=== PATIENT | male | born 1985 | race Caucasian/White ===

== ENCOUNTER 2022-10-17 09:27 | Emergency (ER) | payer BC ==
[2022-10-17] MEDS ORDERED: TORAdol 30 mg Injection IV ONE (09:50)
[2022-10-17] MEDS ORDERED: Hydromorphone 1 mg/ml Injection IV ONE (09:50)
[2022-10-17] MEDS ORDERED: Zofran 4 MG/2 ML VIAL IV ONE (09:50)
[2022-10-17] MEDS ORDERED: Sodium Chloride 0.9% 1000 ML 1,000 ML IV STA (09:50)
[2022-10-17] MEDS ORDERED: Zofran 4 MG/2 ML VIAL ONE (10:02)
[2022-10-17] MEDS ORDERED: TORAdol 30 mg Injection ONE (10:02)
[2022-10-17] MEDS ORDERED: Sodium Chloride 0.9% 1000 ML 1,000 ML ONE (10:03)
[2022-10-17] MEDS ORDERED: Hydromorphone 1 mg/ml Injection ONE (10:03)
[2022-10-17 10:04] LABS: Absolute Neutrophil Ct (ANC) 7.67 x10^3/uL (1.4-6.9); BASOPHIL % 0.3 % (0.0-0.4); Basophil (Absolute #) 0.03 x10^3/uL (0-0.4); Eosinophil % 0.4 % (0.00-5.0); Eosinophil (Absolute #) 0.04 x10^3/uL (0-0.5); Hematocrit 47.6 % (42-50); Hemoglobin 15.7 g/dL (12.5-18.0); IMMATURE GRAN # 0.08 x10^3u/L (0.00-0.03); IMMATURE GRAN % 0.8 % (0.00-0.4); Lymphocyte (Absolute #) 0.94 x10^3/uL (1.0-4.6); Mean Corpuscular Hemoglobin 30.7 pg (26-32); Mean Platelet Volume 9.8 fL (7.5-11.0); Monocyte (Absolute #) 0.66 x10^3/uL (0.0-1.3); Neutrophil % 81.5 % (36.0-66.0); Platelet Count 266 x10^3/uL (150-450); Red Blood Count 5.12 x10^6/uL (4.1-5.6); White Blood Count 9.4 x10^3/uL (4.0-10.5)
[2022-10-17 10:12] LABS: Appearance Clear (Clear); Bacteria None Seen /HPF (None Seen); Bilirubin Negative (Negative); Blood Negative (Negative); Epithelial Cells None Seen /HPF (None Seen); Glucose, Urine Negative (Negative); Hyaline Casts NONE SEEN /LPF (0-2); Ketones Negative (Negative); Leukocyte Esterase Trace (Negative); Nitrite Negative (Negative); Protein,Urine Dip Negative (Negative); RBC 0-2 /HPF (0-5); Specific Gravity 1.025 (1.005-1.030)
[2022-10-17 10:17] LABS: ADD URINE CULTURE? NO (NO)
[2022-10-17 10:17] LABS: ALBUMIN 4.3 g/dL (3.5-5.0); ALKALINE PHOSPHATASE 75 U/L (38-126); ANION GAP 16.5 MEQ/L (5-15); BLOOD UREA NITROGEN 12 mg/dL (9-20); CHLORIDE 104 mmol/L (98-107); Calcium 8.7 mg/dL (8.4-10.2); Carbon Dioxide 22 mmol/L (22-30); Creatinine 1 1.08 mg/dL (0.66-1.25); EST GLOMERULAR FILTRATION RATE > 60.0 ML/MIN; Glucose 93 mg/dL (74-106); LIPASE 74 U/L (23-300); Potassium 3.8 mmol/L (3.5-5.1); SGOT/AST 29 U/L (17-59); SGPT/ALT 46 U/L (0-50); SODIUM 138 mmol/L (137-145); Total Protein 7.7 g/dL (6.3-8.2)
--- NOTE | 2022-10-17 10:25 | XRAY ---
Indication: Epigastric pain. Comparison: None Portable chest underinflated accentuating cardiopulmonary structures and crowding lung bases. No focal infiltrate, consolidation, or large effusion. Bony thorax intact. Impression: Nonacute underinflated chest.
--- NOTE | 2022-10-17 11:01 | XRAY ---
Indication: Epigastric/flank pain. Multiple contiguous axial images obtained through the abdomen and pelvis prior to and following 80 cc Isovue 370 contrast. Comparison: None Lung bases demonstrates mild bilateral dependent atelectasis. Heart not enlarged with prominent epicardiac fat. Noncontrasted images are negative for pathologic visceral calcification/calculi. Noncontrasted stomach and bowel loops appear nonobstructed with normal appendix. Left mid abdomen demonstrates a few centimeter/subcentimeter mesenteric nodes with minimal stranding favoring adenitis. No free fluid/air. Postcontrast images demonstrate normal visceral enhancement and renal excretion. 9 mm right mid renal and 6 mm left upper renal cortical cysts. Remaining liver, gallbladder, pancreas, spleen, adrenal glands, kidneys, ureters, bladder, and aorta are unremarkable. No pathologic retroperitoneal lymphadenopathy. Osseous structures intact. No ventral or inguinal hernias. Impression: Minimal left mid abdomen mesenteric adenitis. Bilateral renal cysts. Remaining CT abdomen/pelvis with and without contrast exam negative.
--- NOTE | 2022-10-17 11:08 | ERPHSYRPT ---
- History of Present Illness Time Seen by Provider: 10/17/22 09:44 Source: patient Exam Limitations: no limitations Patient Subjective Stated Complaint: Abdominal pain Triage Nursing Assessment: Patient brought to ER per w/c from . Patient ambula jennifer back to bed. Patient A+O X 3. Patient's skin pink, warm and dry. Patient complains of abdominal pain that started last night that has gotten worse. Patient states he did have some diarrhea. Patient complains of nausea, but denies vomiting. Abdomen soft and round with BS X 4. Physician History: Left lower quadrant pain, left flank pain. Started last night. No falls or trauma. No fever or chills. Patient is never had abdominal pain like this. Denies any testicular pain, problems peeing. He has not tried thing to make it better or worse. Patient was brought to the emergency department by his son who drove him. Allergies/Adverse Reactions: Sulfa (Sulfonamide Antibiotics) Allergy (Verified 10/17/22 09:38) Hx Influenza Vaccination/Date Given: Yes Hx Pneumococcal Vaccination/Date Given: No Immunizations Up to Date: Yes Travel Risk - International Travel Have you traveled outside of the country in past 3 weeks: No - Coronavirus Screening Are you exhibiting any of the following symptoms?: No Close contact with a COVID-19 positive Pt in past 14-21 Days: No - Vaccine Status Have you recieved a Covid-19 vaccination: No - Review of Systems Constitutional: No Fever, No Chills Eyes: No Symptoms Ears, Nose, & Throat: No Symptoms Respiratory: No Cough, No Dyspnea Cardiac: No Chest Pain, No Edema, No Syncope Abdominal/Gastrointestinal: Abdominal Pain, Nausea, No Vomiting, No Diarrhea Genitourinary Symptoms: No Dysuria Musculoskeletal: No Back Pain, No Neck Pain Skin: No Rash Neurological: No Dizziness, No Focal Weakness, No Sensory Changes Psychological: No Symptoms Endocrine: No Symptoms All Other Systems: Reviewed and Negative - Past Medical History Pertinent Past Medical History: No Neurological History: No Pertinent History ENT History: No Pertinent History Cardiac History: No Pertinent History Respiratory History: No Pertinent History Endocrine Medical History: No Pertinent History Musculoskeletal History: No Pertinent History GI Medical History: No Pertinent History History: No Pertinent History Psycho-Social History: No Pertinent History Male Reproductive Disorders: No Pertinent History - Past Surgical History Past Surgical History: Yes Neuro Surgical History: No Pertinent History Cardiac: No Pertinent History Gastrointestinal: Hernia Repair Genitourinary: No Pertinent History Musculoskeletal: No Pertinent History Male Surgical History: No Pertinent History - Social History Smoking Status: Never smoker Exposure to second hand smoke: No Drug Use: none Patient Lives Alone: No - Nursing Vital Signs Nursing Vital Signs: Initial Vital Signs Temperature 98.1 F 10/17/22 09:39 Pulse Rate 101 H 10/17/22 09:39 Respiratory Rate 18 10/17/22 09:39 O2 Sat by Pulse Oximetry 95 10/17/22 09:39 Pain Scale Pain Intensity 8 - Physical Exam General Appearance: no apparent distress, alert Eye Exam: PERRL/EOMI, eyes nml inspection Ears, Nose, Throat Exam: normal ENT inspection, TMs normal, pharynx normal, moist mucous membranes Neck Exam: normal inspection, non-tender, supple, full range of motion Respiratory Exam: normal breath sounds, lungs clear, No respiratory distress Cardiovascular Exam: regular rate/rhythm, normal heart sounds, normal peripheral pulses Gastrointestinal/Abdomen Exam: soft, normal bowel sounds, other (Left lower quadrant pain, no rebound, guarding. Negative peritoneal signs), No tenderness, No mass Back Exam: normal inspection, normal range of motion, No CVA tenderness, No vertebral tenderness Extremity Exam: normal inspection, normal range of motion, pelvis stable Neurologic Exam: alert, oriented x 3, cooperative, normal mood/affect, nml cerebellar function, nml station & gait, sensation nml, No motor deficits Skin Exam: normal color, warm, dry, No rash Lymphatic Exam: No adenopathy SpO2: 95 - Course Nursing assessment & vital signs reviewed: Yes Ordered Tests: Active Orders 24 hr Category Date Time Status IV Insertion STAT Care 10/17/22 09:50 Active ABDOMEN AND PELVIS W&WO CONTRA [CT] Stat Exams 10/17/22 09:51 Completed CHEST 1 VIEW (PORTABLE) Stat Exams 10/17/22 09:50 Completed CBC W DIFF Stat Lab 10/17/22 10:03 Completed CMP Stat Lab 10/17/22 10:03 Completed LIPASE Stat Lab 10/17/22 10:03 Completed UA W/RFX UR CULTURE Stat Lab 10/17/22 10:00 Completed Medication Summary Discontinued Medications Generic Name Dose Route Start Last Admin Trade Name Freq PRN Reason Stop Dose Admin Hydromorphone HCl 1 mg 10/17/22 09:50 10/17/22 10:08 Hydromorphone 1 Mg/1ml Inj IV 10/17/22 09:51 1 mg STAT ONE Administration Hydromorphone HCl Confirm 10/17/22 10:03 Hydromorphone 1 Mg/1ml Inj Administered 10/17/22 10:04 Dose 1 mg .ROUTE .STK-MED ONE Sodium Chloride 1,000 mls @ 999 mls/hr 10/17/22 09:50 10/17/22 11:14 Sodium Chloride 0.9% 1000 Ml IV 10/17/22 10:50 Infused .Q1H1M STA Infusion Sodium Chloride Confirm 10/17/22 10:03 Sodium Chloride 0.9% 1000 Ml Administered 10/17/22 10:04 Dose 1,000 mls @ ud .ROUTE .STK-MED ONE Ketorolac Tromethamine 30 mg 10/17/22 09:50 10/17/22 10:07 Ketorolac Tromethamine 30 Mg/Ml Inj IV 10/17/22 09:51 30 mg STAT ONE Administration Ketorolac Tromethamine Confirm 10/17/22 10:02 Ketorolac Tromethamine 30 Mg/Ml Inj Administered 10/17/22 10:03 Dose 30 mg .ROUTE .STK-MED ONE Ondansetron HCl 4 mg 10/17/22 09:50 10/17/22 10:06 Ondansetron Hcl 4 Mg/2 Ml Vial IV 10/17/22 09:51 4 mg STAT ONE Administration Ondansetron HCl Confirm 10/17/22 10:02 Ondansetron Hcl 4 Mg/2 Ml Vial Administered 10/17/22 10:03 Dose 4 mg .ROUTE .STK-MED ONE Lab/Rad Data: Laboratory Result Diagrams 10/17/22 10:03 10/17/22 10:03 Laboratory Results 10/17/22 10/17/22 10/17/22 Range/Units 10:03 10:03 10:00 WBC 9.4 (4.0-10.5) x10^3/uL RBC 5.12 (4.1-5.6) x10^6/uL Hgb 15.7 (12.5-18.0) g/dL Hct 47.6 (42-50) % MCV 93.0 (78-100) fL MCH 30.7 (26-32) pg MCHC 33.0 (32-36) g/dL RDW 12.0 (11.5-14.0) % Plt Count 266 (150-450) x10^3/uL MPV 9.8 (7.5-11.0) fL Gran % 81.5 H (36.0-66.0) % Immature Gran % (Auto) 0.8 H (0.00-0.4) % Nucleat RBC Rel Count 0.0 (0.00-0.1) % Eos # (Auto) 0.04 (0-0.5) x10^3/uL Immature Gran # (Auto) 0.08 H (0.00-0.03) x10^3u/L Absolute Lymphs (auto) 0.94 L (1.0-4.6) x10^3/uL Absolute Monos (auto) 0.66 (0.0-1.3) x10^3/uL Absolute Nucleated RBC 0.00 (0.00-0.01) x10^3u/L Lymphocytes % 10.0 L (24.0-44.0) % Monocytes % 7.0 (0.0-12.0) % Eosinophils % 0.4 (0.00-5.0) % Basophils % 0.3 (0.0-0.4) % Absolute Granulocytes 7.67 H (1.4-6.9) x10^3/uL Basophils # 0.03 (0-0.4) x10^3/uL Sodium 138 (137-145) mmol/L Potassium 3.8 (3.5-5.1) mmol/L Chloride 104 (98-107) mmol/L Carbon Dioxide 22 (22-30) mmol/L Anion Gap 16.5 H (5-15) MEQ/L BUN 12 (9-20) mg/dL Creatinine 1.08 (0.66-1.25) mg/dL Estimated GFR > 60.0 ML/MIN Glucose 93 (74-106) mg/dL Calcium 8.7 (8.4-10.2) mg/dL Total Bilirubin 1.30 (0.2-1.3) mg/dL AST 29 (17-59) U/L ALT 46 (0-50) U/L Alkaline Phosphatase 75 (38-126) U/L Serum Total Protein 7.7 (6.3-8.2) g/dL Albumin 4.3 (3.5-5.0) g/dL Lipase 74 (23-300) U/L Urine Color Yellow (Yellow) Urine Appearance Clear (Clear) Urine pH 7.0 (4.6-8.0) Ur Specific Happy 1.025 (1.005-1.030) Urine Protein Negative (Negative) Urine Glucose (UA) Negative (Negative) mg/dL Urine Ketones Negative (Negative) Urine Blood Negative (Negative) Urine Nitrite Negative (Negative) Urine Bilirubin Negative (Negative) Urine Urobilinogen 1.0 A (0.2) mg/dL Ur Leukocyte Esterase Trace A (Negative) U Hyaline Cast (Auto) NONE SEEN (0-2) /LPF Urine Microscopic RBC 0-2 (0-5) /HPF Urine Microscopic WBC 6-10 A (0-5) /HPF Ur Epithelial Cells None Seen (None Seen) /HPF Urine Bacteria None Seen (None Seen) /HPF Urine Culture Reflexed NO (NO) - Progress Progress: improved Progress Note: 10/17/22 11:28 differential diagnosis includes kidney stone, compression fracture, infection, UTI, triple AAA - basic labs including: CBC, lipase, CMP, UA - insert IV for fluids, pain meds, nausea control - consider imaging: CT ab/pelvis Patient feels improved with medication. Labs and CT demonstrate mesenteric adenitis. No signs of appendicitis, kidney stone. Patient feels improved with pain medication here. Plan for discharge home with close follow-up to PCP. Patient will need abdominal reexam in 24 hours. Counseled pt/family regarding: lab results, diagnosis, need for follow-up, rad results - Departure Departure Disposition: Home Clinical Impression: Mesenteric adenitis Condition: Stable Critical Care Time: No Referrals: FINN PLASENCIA [Primary Care Provider] - Follow up/PCP as directed Instructions: Severe Abdominal Pain, Adult (DC) Prescriptions: Ondansetron ODT 4 MG [Zofran Odt 4 mg] 4 mg PO Q6H PRN PRN #10 tablet PRN Reason: Vomiting
[2022-10-17 11:27] VITALS: BP 112/70; PULSE 71
[2022-10-17 11:29] VITALS: O2SAT 95
== END 2022-10-17 11:35 | disposition home or self-care (01) ==
LOC: ED 09:27
DX: I88.0 Nonspecific mesenteric lymphadenitis (principal); R10.32 Left lower quadrant pain; Z28.310 Unvaccinated for COVID-19
CPT/HCPCS: 36000; 36415; 71045; 74178; 80053; 81001; 83690; 85025; 96374; 96375; 99284; J1170; J1885; J2405

== ENCOUNTER 2023-03-11 09:20 | Observation (INO) | payer BC ==
[2023-03-11] MEDS ORDERED: TORAdol 30 mg Injection IV ONE (09:39)
[2023-03-11] MEDS ORDERED: TORAdol 30 mg Injection ONE ×2 (10:27→14:35)
--- NOTE | 2023-03-11 10:36 | XRAY ---
Indication: Umbilical pain. Hernia. Multiple contiguous axial images obtained through the abdomen and pelvis using 80 cc Isovue 370 contrast. Comparison: October 25, 2022 Lung bases again demonstrates dependent atelectasis. Heart not enlarged. Umbilicus again demonstrates tiny fatty hernia with new induration presumed inflammatory. No walled off fluid or subcutaneous emphysema. Noncontrasted stomach and bowel loops appear nonobstructed again with normal appendix. Stable small bilateral renal cysts. No free fluid/air. Remaining liver, gallbladder, pancreas, spleen, adrenal glands, kidneys, ureters, bladder, and aorta are normal in CT appearance and attenuation. No pathologic retroperitoneal lymphadenopathy. Osseous structures intact. Impression: 1. Tiny fatty umbilical hernia with new induration presumed inflammatory. 2. Stable bilateral renal cysts. 3. Remaining CT abdomen/pelvis with contrast exam continues to be negative.
[2023-03-11] MEDS: Sodium Chloride 0.9% 1000 ML 1,000 ML IV SCH ×3 (10:37→18:12)
[2023-03-11 10:50] LABS: Absolute Neutrophil Ct (ANC) 5.28 x10^3/uL (1.4-6.9); Basophil (Absolute #) 0.09 x10^3/uL (0-0.4); Eosinophil % 1.7 % (0.00-5.0); Eosinophil (Absolute #) 0.15 x10^3/uL (0-0.5); Hematocrit 45.8 % (42-50); Hemoglobin 15.6 g/dL (12.5-18.0); IMMATURE GRAN # 0.37 x10^3u/L (0.00-0.03); IMMATURE GRAN % 4.1 % (0.00-0.4); Lymphocyte (Absolute #) 2.52 x10^3/uL (1.0-4.6); Lymphocytes % 28.1 % (24.0-44.0); Mean Cell Volume 93.5 fL (78-100); Mean Corpuscular Hemoglobin 31.8 pg (26-32); Mean Corpuscular Hgb Concent. 34.1 g/dL (32-36); Mean Platelet Volume 10.1 fL (7.5-11.0); Monocyte (Absolute #) 0.55 x10^3/uL (0.0-1.3); Monocytes % 6.1 % (0.0-12.0); Platelet Count 303 x10^3/uL (150-450); Red Cell Distribution Width 11.9 % (11.5-14.0)
[2023-03-11 11:06] LABS: ALBUMIN 4.4 g/dL (3.5-5.0); ANION GAP 11.1 MEQ/L (5-15); BILIRUBIN,TOTAL 0.7 mg/dL (0.2-1.3); Creatinine 1 0.82 mg/dL (0.66-1.25); EST GLOMERULAR FILTRATION RATE 113.9 ML/MIN; Potassium 4.2 mmol/L (3.5-5.1); Total Protein 7.2 g/dL (6.3-8.2)
--- NOTE | 2023-03-11 11:29 | ERPHSYRPT ---
- History of Present Illness Time Seen by Provider: 03/11/23 09:30 Historian: patient Exam Limitations: no limitations Patient Subjective Stated Complaint: Pt states "I have a knot in belly and it hurts to cough, move or anything." Triage Nursing Assessment: PT presented alert and oriented X3, skin pwd. Pt ambulates with an upright steady gait, able to speak in clear full sentences. pt has small pea size raised area in umbilicus extremely tender to touch. Physician History: Patient is a 38-year-old white male who presents with a complaint of a painful nodule in his umbilicus which hurts to move touch cough etc. This pain started and the knot was noted last night has grown worse over the course of today he has had no nausea or vomiting. He is generally extremely healthy. 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.) Quality: sharpness Abdominal Pain Onset Location: periumbilical Pain Radiation: no radiation Severity of Pain-Max: severe Severity of Pain-Current: severe Modifying Factors: Improves With: breathing, movement Associated Symptoms: denies symptoms Allergies/Adverse Reactions: Sulfa (Sulfonamide Antibiotics) Allergy (Verified 10/17/22 09:38) Home Medications: No Reportable Medications [No Reported Medications] 03/11/23 [History] Hx Tetanus, Diphtheria Vaccination/Date Given: Yes Hx Influenza Vaccination/Date Given: No Hx Pneumococcal Vaccination/Date Given: No Immunizations Up to Date: No Travel Risk - International Travel Have you traveled outside of the country in past 3 weeks: No - Coronavirus Screening Are you exhibiting any of the following symptoms?: No Close contact with a COVID-19 positive Pt in past 14-21 Days: No - Vaccine Status Have you recieved a Covid-19 vaccination: No - Review of Systems Constitutional: No Fever, No Chills Eyes: No Symptoms Ears, Nose, & Throat: No Symptoms Respiratory: No Cough, No Dyspnea Cardiac: No Chest Pain, No Edema, No Syncope Abdominal/Gastrointestinal: Other (Painful umbilical hernia), No Abdominal Pain, No Nausea, No Vomiting, No Diarrhea Genitourinary Symptoms: No Dysuria Musculoskeletal: No Back Pain, No Neck Pain Skin: No Rash Neurological: No Dizziness, No Focal Weakness, No Sensory Changes Psychological: No Symptoms Endocrine: No Symptoms All Other Systems: Reviewed and Negative - Past Medical History Pertinent Past Medical History: No Neurological History: No Pertinent History ENT History: No Pertinent History Cardiac History: No Pertinent History Respiratory History: No Pertinent History Endocrine Medical History: No Pertinent History Musculoskeletal History: No Pertinent History GI Medical History: No Pertinent History History: No Pertinent History Psycho-Social History: No Pertinent History Male Reproductive Disorders: No Pertinent History - Past Surgical History Past Surgical History: Yes Neuro Surgical History: No Pertinent History Cardiac: No Pertinent History Gastrointestinal: Hernia Repair Genitourinary: No Pertinent History Musculoskeletal: No Pertinent History Male Surgical History: No Pertinent History - Social History Smoking Status: Never smoker Exposure to second hand smoke: No Drug Use: none Patient Lives Alone: No - Nursing Vital Signs Nursing Vital Signs: Initial Vital Signs Temperature 97.1 F 03/11/23 09:23 Pulse Rate 70 03/11/23 09:23 Respiratory Rate 20 03/11/23 09:23 Blood Pressure 137/94 03/11/23 09:23 O2 Sat by Pulse Oximetry 99 03/11/23 09:23 Pain Scale Pain Intensity 2 - Physical Exam General Appearance: moderate distress, alert Eye Exam: PERRL/EOMI, eyes nml inspection Ears, Nose, Throat Exam: normal ENT inspection, pharynx normal, moist mucous membranes Neck Exam: normal inspection, non-tender, supple, full range of motion Respiratory Exam: normal breath sounds, lungs clear, No respiratory distress Cardiovascular Exam: regular rate/rhythm, normal heart sounds Gastrointestinal/Abdomen Exam: soft, tenderness (Umbilical), No mass Back Exam: normal inspection, normal range of motion, No CVA tenderness, No vertebral tenderness Extremity Exam: normal inspection, normal range of motion, pelvis stable Neurologic Exam: alert, oriented x 3, cooperative, normal mood/affect, nml cerebellar function, sensation nml, No motor deficits Skin Exam: normal color, warm, dry SpO2 Interpretation: normal SpO2: 94 O2 Delivery: Room Air - Course Nursing assessment & vital signs reviewed: Yes - CT Exams Abdomen/Pelvis CT Interpretation: Other (Incarcerated umbilical hernia) Ordered Tests: Active Orders 24 hr Category Date Time Status ABDOMEN AND PELVIS W CONTRAST [CT] Stat Exams 03/11/23 09:39 Completed CBC W DIFF Stat Lab 03/11/23 10:40 Completed CMP Stat Lab 03/11/23 10:40 Completed Medication Summary Generic Name Dose Route Start Last Admin Trade Name Madonna PRN Reason Stop Dose Admin Sodium Chloride 1,000 mls @ 100 mls/hr 03/11/23 09:45 03/11/23 10:37 Sodium Chloride 0.9% 1000 Ml IV 04/10/23 09:44 100 mls/hr .Q10H SHARRON Administration Discontinued Medications Generic Name Dose Route Start Last Admin Trade Name Madonna PRN Reason Stop Dose Admin Ketorolac Tromethamine 30 mg 03/11/23 09:39 03/11/23 10:30 Ketorolac Tromethamine 30 Mg/Ml Inj IV 03/11/23 09:40 30 mg STAT ONE Administration Ketorolac Tromethamine Confirm 03/11/23 10:27 Ketorolac Tromethamine 30 Mg/Ml Inj Administered 03/11/23 10:28 Dose 30 mg .ROUTE .STK-MED ONE Lab/Rad Data: Laboratory Result Diagrams 03/11/23 10:40 03/11/23 10:40 Laboratory Results 03/11/23 03/11/23 Range/Units 10:40 10:40 WBC 9.0 (4.0-10.5) x10^3/uL RBC 4.90 (4.1-5.6) x10^6/uL Hgb 15.6 (12.5-18.0) g/dL Hct 45.8 (42-50) % MCV 93.5 (78-100) fL MCH 31.8 (26-32) pg MCHC 34.1 (32-36) g/dL RDW 11.9 (11.5-14.0) % Plt Count 303 (150-450) x10^3/uL MPV 10.1 (7.5-11.0) fL Gran % 59.0 (36.0-66.0) % Immature Gran % (Auto) 4.1 H (0.00-0.4) % Nucleat RBC Rel Count 0.0 (0.00-0.1) % Eos # (Auto) 0.15 (0-0.5) x10^3/uL Immature Gran # (Auto) 0.37 H (0.00-0.03) x10^3u/L Absolute Lymphs (auto) 2.52 (1.0-4.6) x10^3/uL Absolute Monos (auto) 0.55 (0.0-1.3) x10^3/uL Absolute Nucleated RBC 0.00 (0.00-0.01) x10^3u/L Lymphocytes % 28.1 (24.0-44.0) % Monocytes % 6.1 (0.0-12.0) % Eosinophils % 1.7 (0.00-5.0) % Basophils % 1.0 (0.0-0.4) % Absolute Granulocytes 5.28 (1.4-6.9) x10^3/uL Basophils # 0.09 (0-0.4) x10^3/uL Sodium 139 (137-145) mmol/L Potassium 4.2 (3.5-5.1) mmol/L Chloride 109 H (98-107) mmol/L Carbon Dioxide 23 (22-30) mmol/L Anion Gap 11.1 (5-15) MEQ/L BUN 14 (9-20) mg/dL Creatinine 0.82 (0.66-1.25) mg/dL Estimated GFR 113.9 ML/MIN Glucose 77 (74-106) mg/dL Calcium 9.0 (8.4-10.2) mg/dL Total Bilirubin 0.70 (0.2-1.3) mg/dL AST 27 (17-59) U/L ALT 38 (0-50) U/L Alkaline Phosphatase 56 (38-126) U/L Serum Total Protein 7.2 (6.3-8.2) g/dL Albumin 4.4 (3.5-5.0) g/dL - Progress Progress: unchanged Progress Note: 03/11/23 11:[address] scan and basic labs sent Dr. Oh was contacted he has agreed to take him to surgery at approximately 4 PM this afternoon. Discussed with : Silvino Will see patient in: hospital (observation) Medical Desision Making - Discussion of managment Care discussed with:: specialist (Dr. Ronan Oh) Agreed on:: Treatment plan, need for follow-up, decision to admit Will see patient: in hospital - Diagnostic Testing Diagnostic test were ordered, analyzed, and reviewed by me: Yes Radiological Interpretation: Reviewed by me - Risk of complications The pt has a mod risk of morbidity or mortality based on: Need for minor surgical intervention in patient with know risk factors - Departure Departure Disposition: Observation Clinical Impression: Incarcerated umbilical hernia Condition: Stable Critical Care Time: No Referrals: FINN PLASENCIA [Primary Care Provider] - Follow up/PCP as directed
--- NOTE | 2023-03-11 14:10 | PCM.HP ---
History of Present Illness - Chief Complaint Chief Complaint: umbilical hernia Date: 03/11/23 History of Present Illness: is a 38 year old male with no pmhx who presented to ED with complaints of a dime sized nodule in umbilicus and associated pain. He states that he did not notice the nodule until last night and that the pain is only present with palpation or pressure applied such as a seat belt. Upon presentation patient vitals unremarkable. CT of the abdomen demonstrating a tiny fatty umbilical hernia with new induration presumed inflammatory. Lab findings unremarkable. Surgery has been consulted with plans for surgical intervention this evening. - Review of Systems Constitutional: No Symptoms Eyes: No Symptoms Ears, Nose, & Throat: No Symptoms Respiratory: No Symptoms Cardiac: No Symptoms Abdominal/Gastrointestinal: Abdominal Pain, Diarrhea (const/diarrhea alt intermittently chronic), Constipation, Other (dime-sized nodule to upper portion of umbilicus) Genitourinary Symptoms: No Symptoms Musculoskeletal: No Symptoms Skin: No Symptoms Neurological: No Symptoms Psychological: No Symptoms Endocrine: No Symptoms Hematologic/Lymphatic: No Symptoms Medications & Allergies Home Medications: Home Medication List No Reportable Medications [No Reported Medications] 03/11/23 [History Confirmed 03/11/23] Allergies/Adverse Reactions: Allergies Allergy/AdvReac Type Severity Reaction Status Date / Time Sulfa (Sulfonamide Allergy Verified 10/17/22 09:38 Antibiotics) - Past Medical History Past Medical History: No Neurological History: No Pertinent History ENT History: No Pertinent History Cardiac History: No Pertinent History Respiratory History: No Pertinent History Endocrine Medical History: No Pertinent History Musculoskelatal History: No Pertinent History GI Medical History: No Pertinent History History: No Pertinent History Pyscho-Social History: No Pertinent History Male Reproductive Disorders: No Pertinent History - Past Surgical History Past Surgical History: Yes Neuro Surgical History: No Pertinent History Cardiac History: No Pertinent History Respiratory Surgery: No Pertinent History GI Surgical History: No Pertinent History Genitourinary Surgical Hx: No Pertinent History Musculskeletal Surgical Hx: Other Male Surgical History: No Pertinent History Other Surgical History: right index finger put back, groin surgery as a kid - Social History Smoking Status: Never smoker Exposure to second hand smoke: No Alcohol: None Drug Use: none - Physical Exam Vital Signs: Vital Signs - 24 hr Temp Pulse Resp BP BP Pulse Ox 03/11/23 13:25 97.5 F 70 17 135/86 98 11/13/23 13:04 97.5 F 70 17 135/86 98 03/11/23 12:34 97.5 F 70 17 135/86 98 03/11/23 11:34 94 L 03/11/23 10:00 130/92 94 L 03/11/23 09:31 142/72 97 03/11/23 09:23 97.1 F 70 20 137/94 99 General Appearance: no apparent distress Neurologic Exam: alert, oriented x 3, cooperative Eye Exam: PERRL/EOMI Ears, Nose, Throat Exam: normal ENT inspection Neck Exam: normal inspection Respiratory Exam: normal breath sounds, lungs clear Cardiovascular Exam: regular rate/rhythm, normal heart sounds Gastrointestinal/Abdomen Exam: soft, normal bowel sounds, tenderness (TTP at hernia site) Rectal Exam: deferred Back Exam: normal inspection Extremity Exam: normal inspection Results - Labs Lab/Micro Results: Lab Results-Last 24 Hours 03/11/23 03/11/23 Range/Units 10:40 10:40 WBC 9.0 (4.0-10.5) x10^3/uL RBC 4.90 (4.1-5.6) x10^6/uL Hgb 15.6 (12.5-18.0) g/dL Hct 45.8 (42-50) % MCV 93.5 (78-100) fL MCH 31.8 (26-32) pg MCHC 34.1 (32-36) g/dL RDW 11.9 (11.5-14.0) % Plt Count 303 (150-450) x10^3/uL MPV 10.1 (7.5-11.0) fL Gran % 59.0 (36.0-66.0) % Immature Gran % (Auto) 4.1 H (0.00-0.4) % Nucleat RBC Rel Count 0.0 (0.00-0.1) % Eos # (Auto) 0.15 (0-0.5) x10^3/uL Immature Gran # (Auto) 0.37 H (0.00-0.03) x10^3u/L Absolute Lymphs (auto) 2.52 (1.0-4.6) x10^3/uL Absolute Monos (auto) 0.55 (0.0-1.3) x10^3/uL Absolute Nucleated RBC 0.00 (0.00-0.01) x10^3u/L Lymphocytes % 28.1 (24.0-44.0) % Monocytes % 6.1 (0.0-12.0) % Eosinophils % 1.7 (0.00-5.0) % Basophils % 1.0 (0.0-0.4) % Absolute Granulocytes 5.28 (1.4-6.9) x10^3/uL Basophils # 0.09 (0-0.4) x10^3/uL Sodium 139 (137-145) mmol/L Potassium 4.2 (3.5-5.1) mmol/L Chloride 109 H (98-107) mmol/L Carbon Dioxide 23 (22-30) mmol/L Anion Gap 11.1 (5-15) MEQ/L BUN 14 (9-20) mg/dL Creatinine 0.82 (0.66-1.25) mg/dL Estimated GFR 113.9 ML/MIN Glucose 77 (74-106) mg/dL Calcium 9.0 (8.4-10.2) mg/dL Total Bilirubin 0.70 (0.2-1.3) mg/dL AST 27 (17-59) U/L ALT 38 (0-50) U/L Alkaline Phosphatase 56 (38-126) U/L Serum Total Protein 7.2 (6.3-8.2) g/dL Albumin 4.4 (3.5-5.0) g/dL - Radiology Impressions Radiology Exams & Impressions: Radiology Procedures Category Date Time Status ABDOMEN AND PELVIS W CONTRAST [CT] Stat Exams 03/11/23 09:39 Completed Assessment/Plan (1) Incarcerated umbilical hernia Current Visit: Yes Status: Acute Assessment & Plan: -CT reviewed demonstrating Tiny fatty umbilical hernia with new induration presumed inflammatory. -Surgery consulted, plan for surgical intervention tonight -pain management Code(s): K42.0 - UMBILICAL HERNIA WITH OBSTRUCTION, WITHOUT GANGRENE (2) Abdominal pain Current Visit: Yes Status: Acute Assessment & Plan: -see incarcerated hernia Code(s): R10.9 - UNSPECIFIED ABDOMINAL PAIN (3) Bronchitis Current Visit: Yes Status: Acute Assessment & Plan: -recent treatment with inhaler, currently no symptoms, lungs clear Code(s): J40 - BRONCHITIS, NOT SPECIFIED ACUTE OR CHRONIC
[2023-03-11] MEDS ORDERED: Decadron 4 MG INJ ONE (14:35)
[2023-03-11] MEDS ORDERED: Zemuron 100 MG/10 ML ONE (14:35)
[2023-03-11] MEDS ORDERED: BRIDION 200MG/2ML IV ONE (14:35)
[2023-03-11] MEDS ORDERED: DEXMEDETOMIDINE 80 MCG/20ML-NS IV ONE (14:35)
[2023-03-11] MEDS ORDERED: Zofran 4 MG/2 ML VIAL ONE ×2 (14:35→16:09)
[2023-03-11] MEDS ORDERED: Xylocaine-Mpf 2% 5 Ml Vial ONE (14:35)
[2023-03-11] MEDS ORDERED: DIPRIVAN 200 MG/20 ML IV ONE (14:35)
[2023-03-11] MEDS ORDERED: SUBLIMAZE 100 MCG/2 ML ONE (14:35)
[2023-03-11] MEDS ORDERED: OFIRMEV 100 ML IV ONE (14:36)
[2023-03-11] MEDS ORDERED: Lactated Ringers 1,000 ML IV ONE (14:36)
[2023-03-11] MEDS ORDERED: Versed 2 MG/2 ML Injection ONE (14:42)
[2023-03-11] MEDS ORDERED: Sensorcaine 0.25% 10 ML ONE (14:45)
[2023-03-11] MEDS ORDERED: KEFZOL 1 GM ONE (14:55)
[2023-03-11] MEDS ORDERED: CEFAZOLIN 2 GM-D5W BAG** 2 GM/50 ML ML IV SCH (18:00)
[2023-03-11] MEDS: NORCO 5/325 MG PO PRN ×2 (18:11→22:22)
[2023-03-11 18:48] VITALS: RESP 16
[2023-03-11] MEDS: CEFAZOLIN 2 GM-D5W BAG** 2 GM/50 ML ML IV SCH (22:20)
[2023-03-11 23:44] VITALS: TEMP 97.7
[2023-03-12 04:31] VITALS: O2SAT 95
[2023-03-12] MEDS: CEFAZOLIN 2 GM-D5W BAG** 2 GM/50 ML ML IV SCH (05:31)
--- NOTE | 2023-03-12 05:40 | PCM.DS ---
Discharge Summary Date of Admission: 03/11/23 12:26 Date of Discharge: 03/12/23 Admitting Physician: GAUDENCIO GARCIA MD Primary Care Provider: FINN PLASENCIA Allergies Allergies Sulfa (Sulfonamide Antibiotics) Allergy (Verified 10/17/22 09:38) Hospital Summary - Hospital Course Hospital Course: is a 38 year old male with no pmhx who presented to ED with complaints of a dime sized nodule in umbilicus and associated pain. He states that he did not notice the nodule until last night and that the pain is only present with palpation or pressure applied such as a seat belt. Upon presentation patient vitals unremarkable. CT of the abdomen demonstrating a tiny fatty umbilical hernia with new induration presumed inflammatory. Lab findings unremarkable. Surgery has been consulted and patient received surgical intervention for hernia repair. Patient is s/p repair PODS#1 and doing well. Pain is minimal, instructions have been provided by surgery for post op care. Patient stable for discharge. New Diagnosis: Incarcerated hernia New Medications: [place] Follow Up: PCP/Surgery Latest Assessment & Plan (1) Incarcerated umbilical hernia Current Visit: Yes Status: Acute Assessment & Plan: -CT reviewed demonstrating Tiny fatty umbilical hernia with new induration presumed inflammatory. -Surgery consulted, plan for surgical intervention tonight -pain management Code(s): K42.0 - UMBILICAL HERNIA WITH OBSTRUCTION, WITHOUT GANGRENE (2) Abdominal pain Current Visit: Yes Status: Acute Assessment & Plan: -see incarcerated hernia Code(s): R10.9 - UNSPECIFIED ABDOMINAL PAIN (3) Bronchitis Current Visit: Yes Status: Acute Assessment & Plan: -recent treatment with inhaler, currently no symptoms, lungs clear I spent 35 minutes [id number] with the patient on the day of discharge performing discharge exam, discussing hospital stay and discharge instructions with patient and caregivers, preparation of discharge records, prescriptions & referral forms and addressing any questions/concerns the patient had as documented above. - Vitals & Intake/Output Vital Signs: Vital Signs Temperature 97.7 F 03/11/23 23:43 Pulse Rate 70 03/12/23 04:30 Respiratory Rate 16 03/12/23 04:30 Blood Pressure 122/58 03/12/23 04:30 O2 Sat by Pulse Oximetry 95 03/12/23 04:30 Intake & Output: Intake & Output 11/11/03/10/23 03/11/23 03/12/23 11:59 11:59 11:59 11:59 Intake Total 1200 Output Total 800 Balance 400 Weight 111.2 kg 111.4 kg - Lab Result Diagrams: 03/11/23 10:40 03/11/23 10:40 Lab Results-Last 24 Hrs: Lab Results-Last 24 Hours 03/11/23 03/11/23 Range/Units 10:40 10:40 WBC 9.0 (4.0-10.5) x10^3/uL RBC 4.90 (4.1-5.6) x10^6/uL Hgb 15.6 (12.5-18.0) g/dL Hct 45.8 (42-50) % MCV 93.5 (78-100) fL MCH 31.8 (26-32) pg MCHC 34.1 (32-36) g/dL RDW 11.9 (11.5-14.0) % Plt Count 303 (150-450) x10^3/uL MPV 10.1 (7.5-11.0) fL Gran % 59.0 (36.0-66.0) % Immature Gran % (Auto) 4.1 H (0.00-0.4) % Nucleat RBC Rel Count 0.0 (0.00-0.1) % Eos # (Auto) 0.15 (0-0.5) x10^3/uL Immature Gran # (Auto) 0.37 H (0.00-0.03) x10^3u/L Absolute Lymphs (auto) 2.52 (1.0-4.6) x10^3/uL Absolute Monos (auto) 0.55 (0.0-1.3) x10^3/uL Absolute Nucleated RBC 0.00 (0.00-0.01) x10^3u/L Lymphocytes % 28.1 (24.0-44.0) % Monocytes % 6.1 (0.0-12.0) % Eosinophils % 1.7 (0.00-5.0) % Basophils % 1.0 (0.0-0.4) % Absolute Granulocytes 5.28 (1.4-6.9) x10^3/uL Basophils # 0.09 (0-0.4) x10^3/uL Sodium 139 (137-145) mmol/L Potassium 4.2 (3.5-5.1) mmol/L Chloride 109 H (98-107) mmol/L Carbon Dioxide 23 (22-30) mmol/L Anion Gap 11.1 (5-15) MEQ/L BUN 14 (9-20) mg/dL Creatinine 0.82 (0.66-1.25) mg/dL Estimated GFR 113.9 ML/MIN Glucose 77 (74-106) mg/dL Calcium 9.0 (8.4-10.2) mg/dL Total Bilirubin 0.70 (0.2-1.3) mg/dL AST 27 (17-59) U/L ALT 38 (0-50) U/L Alkaline Phosphatase 56 (38-126) U/L Serum Total Protein 7.2 (6.3-8.2) g/dL Albumin 4.4 (3.5-5.0) g/dL - Radiology Exams Ordered Rad Exams-Entire Visit: Radiology Procedures Category Date Time Status ABDOMEN AND PELVIS W CONTRAST [CT] Stat Exams 03/11/23 09:39 Completed Discharge Exam General Appearance: no apparent distress Neurologic Exam: alert, oriented x 3 Eye Exam: PERRL Ears, Nose, Throat Exam: normal ENT inspection Neck Exam: normal inspection Respiratory Exam: normal breath sounds, lungs clear Cardiovascular Exam: regular rate/rhythm, normal heart sounds Gastrointestinal/Abdomen Exam: soft, normal bowel sounds, tenderness (at umbilical incision site) Back Exam: normal inspection Extremity Exam: normal inspection Skin Exam: other (incision site at umbilicus, covered in gauze/tape, CDI) Wound Assessment: Skin/Wound Assessment Wound/Incision Assessment Start: 03/11/23 13:00 Text: Status: Active Freq: Q4H Protocol: Document 03/12/23 04:00 BIRD (Rec: 03/12/23 04:10 BIRD [id number]) Wound/Incision Assessment Other Wound Assessment Shift Assessment Wound Type Incision Wound Stage Non Pressure Wound Dressing Status Dry & Intact Drainage Amount None Primary Dressing [place]LAND DRESSING Comment ABDOMINAL BINDER ON Final Diagnosis/Problem List - Final Discharge Diagnosis/Problem (1) Incarcerated umbilical hernia Current Visit: Yes Status: Acute Code(s): K42.0 - UMBILICAL HERNIA WITH OBSTRUCTION, WITHOUT GANGRENE (2) Abdominal pain Current Visit: Yes Status: Acute Code(s): R10.9 - UNSPECIFIED ABDOMINAL PAIN (3) Bronchitis Current Visit: Yes Status: Acute Code(s): J40 - BRONCHITIS, NOT SPECIFIED ACUTE OR CHRONIC - Discharge Disposition: Home, Self-Care Condition: Stable Prescriptions: New Hydrocodone/Acetaminophen [Hydrocodone-Acetamin 5-325 mg] 1 tab PO Q4HPRN PRN 3 Days #18 tablet MDD 6 PRN Reason: Pain Additional Instructions: DO NOT LIFT OVER 5LBS FOR 2 WEEKS. Follow up with: FINN PLASENCIA [Primary Care Provider] - 03/26/23 9:45 am EMERY ROQUE MD [ACTIVE STAFF] - 03/19/23 11:30 am (PT WILL SEE Blanca ROQUE FOR FOLLOW UP.) Forms: Work/School Release Form
[2023-03-12] MEDS: NORCO 5/325 MG PO PRN (06:07)
[2023-03-12 06:50] VITALS: BP 111/73; PULSE 65
--- NOTE | 2023-03-12 12:45 | CONS ---
HISTORY: This is a patient who presents with an acute incarcerated umbilical hernia. He states that he has never had any prior abdominal surgery and he has never felt a lesion or issue at his umbilicus but recently this has stuck out, became very painful with a little redness of the skin and he presented to the emergency room. He denies chest pain, fever, nausea, vomiting, and change in bowel function, constipation or any other issue. He is only having pain at the umbilicus. He did a CT scan which these results have been reviewed with him personally. The CT scan showed an incarcerated hernia with fatty tissue and a small umbilical hernia. I have also reviewed all of his labs with him as well. PAST MEDICAL/SURGICAL HISTORY: Most significant for T&A which he did well with. MEDICATIONS: None. ALLERGIES: SULFA. SOCIAL HISTORY: Negative for tobacco, alcohol or drug use. FAMILY HISTORY: He has no pertinent family history. PHYSICAL EXAMINATION: GENERAL: No acute distress. CVS: Regular rate and rhythm. PULMONARY: Nonlabored respirations. ABDOMEN: Soft, tender to palpation at the umbilicus with a lump that is firm with some mild skin erythema here all consistent with an incarcerated hernia that is small. The remainder of his abdomen is nondistended and very soft and not tender. EXTREMITIES: The patient is ambulatory. ASSESSMENT AND PLAN: Incarcerated umbilical hernia. I suspect there is preperitoneal or omental fat in the hernia. I do not expect to find any bowel. The remainder of the exam is good. He is quite tender. The hernia is not reducible. We have discussed urgently taking him to the OR to repair the hernia. He would like to proceed. I have discussed with him all of the procedure details of importance. I have also discussed with him that I may or may not place mesh based on what I find. We have discussed the risk of mesh very clearly. Mesh can move, get infected, have to be removed, stick to other organs or surfaces, cause obstruction and the risks are not limited to this there could recalls down the road but this is a very standard way to fix the hernia and works very well if it is needed. I have discussed with him that I will make that decision based on how the large the actual hernia defect is and if it is small I may not need to use the mesh. We have really gone through all the risks of hernia repair also including injuring other structures, bleeding, infection, wound healing complications, medical complications, recurrent pain and leaving part or all of the umbilicus with regards to the skin. The complications are not limited to this and he understands that as well. He understands that he will have strict instructions not to lift, push or pull postoperatively also. After the discussion the patient would like to proceed with surgery. He is stable. I have added him on for the next case. I had also written this consult out in the chart for immediate review.
--- NOTE | 2023-03-12 13:42 | OP ---
PROCEDURE DATE/TIME: 03/11/2023 1444 PREOPERATIVE DIAGNOSIS: Incarcerated umbilical hernia. POSTOPERATIVE DIAGNOSIS: Incarcerated umbilical hernia with preperitoneal/omental fat. PROCEDURE: Repair incarcerated umbilical hernia repair without mesh. PROCEDURE PERFORMED BY: Ashley Oh M.D. ANESTHESIA: General. ESTIMATED BLOOD LOSS: Less than 5 cc. COMPLICATIONS: None. SPECIMEN: Umbilical hernia sac with contents. HISTORY: This is a gentleman who presents with an incarcerated umbilical hernia. Please see the consult note dictated and in the chart. He has elected for urgent repair of this umbilical hernia. He was seen in the preoperative area. DESCRIPTION OF PROCEDURE: He was brought back to the operative suite. Anesthesia induced. He was prepped and draped in the usual sterile fashion. A complete time out was performed. I then made an incision at the lateral aspect around his umbilicus in a semicircle fashion through skin and subcutaneous tissue. I then clearly identified the hernia and raised the umbilicus off of the hernia sac. I was able to fully remove the sac, open this and he did have fatty tissue contents within the sac. Some of the fatty contents were easily placed back into the abdomen and looked healthy but a small portion encroached with fatty tissue. I did excise fully with the sac and sent this for pathology. The hernia defect was then clearly identified with the defect itself about 8 to 9 mm in size. Due to the small nature, I cannot even fit my pinky through the hernia to feel the remainder of his abdominal wall in this area. There is absolutely no bowel. The tissue surrounding looked very healthy. Due to all of these findings with a small hernia, I decided that it would be in the patient's best interest to do a suture repaired hernia and not to make the hernia bigger, to fit a mesh ring in at this time and so I placed four interrupted 0 Prolene sutures into the defect to close this. I laid each suture in and tied them at the end once deep tissue was laid in. The repair looked excellent and very strong. I irrigated. I then packed the umbilicus into the fascia using 3-0 Vicryl. We then closed with 3-0 Vicryl running subcuticular Monocryl stitch. Steri-Strips, umbilical sponge and sterile dressing. The patient tolerated the procedure very well. There were no immediate complications. I have personally discussed his case with his admitting practitioner as well as his family. He will be going to recovery and then tentative plans for discharge home later tonight or tomorrow. I have discussed all of his instructions and also have written these down and they understand. All questions have been answered. The patient will be going to postoperative anesthesia care unit for recovery.
== END 2023-03-12 10:19 | disposition home or self-care (01) ==
LOC: ED 09:20 → MED SURG 12:26
PROVIDERS: ADMIT Internal Medicine; ATTEND Internal Medicine
DX: K42.0 Umbilical hernia with obstruction, without gangrene (principal); R10.9 Unspecified abdominal pain; J40 Bronchitis, not specified as acute or chronic; Z20.828 Contact with and (suspected) exposure to other viral communicable diseases
CPT/HCPCS: 36415; 49592; 74177; 80053; 85025; 96374; 99284; Q3014; G0378; J0690; J1100; J1885; J2250; J2405; J2704; J3010; L0625; A9270-GY

== ENCOUNTER 2023-10-12 20:14 | Emergency (ER) | payer SELFPAY ==
--- NOTE | 2023-10-12 20:19 | ERPHSYRPT ---
- History of Present Illness Time Seen by Provider: 10/12/23 20:19 Source: patient, family Exam Limitations: no limitations Physician History: This is a 38-year-old white male patient who was using a high concentration high alkaline liquid soap to clean vehicles on prior to arrival. He did get liquid on his right shoe that seeped onto the dorsal aspect of his right foot. At that time he did feel some burning so he took the shoe off and sock off and rinsed out the shoe sock and his foot. He then put the shoe back on and continued working for an additional 30 minutes to 1 hour. Later, he noticed a burn to the dorsal aspect of his foot. Today the duran seem to be darker and larger and he became concerned. Occurred: days ago (2) Quality: constant, burning Severity of Pain-Max: moderate Severity of Pain-Current: moderate Lower Extremities Pain: foot: right (Dorsal aspect) Modifying Factors: Improves With: movement Associated Symptoms: none Allergies/Adverse Reactions: Sulfa (Sulfonamide Antibiotics) Allergy (Mild, Verified 10/12/23 20:21) Hx Tetanus, Diphtheria Vaccination/Date Given: Yes Hx Influenza Vaccination/Date Given: No Hx Pneumococcal Vaccination/Date Given: No Travel Risk - International Travel Have you traveled outside of the country in past 3 weeks: No - Emerging Infectious Disease Are you exhibiting symptoms associated with any current EIDs: No - Review of Systems Constitutional: No Symptoms Eyes: No Symptoms Ears, Nose, & Throat: No Symptoms Respiratory: No Symptoms Cardiac: No Symptoms Abdominal/Gastrointestinal: No Symptoms Genitourinary Symptoms: No Symptoms Musculoskeletal: No Symptoms Skin: Other (Skin burn dorsal aspect right foot) Neurological: No Symptoms Psychological: No Symptoms Endocrine: No Symptoms Hematologic/Lymphatic: No Symptoms Immunological/Allergic: No Symptoms All Other Systems: Reviewed and Negative - Past Medical History Pertinent Past Medical History: No Neurological History: No Pertinent History ENT History: No Pertinent History Cardiac History: No Pertinent History Respiratory History: No Pertinent History Endocrine Medical History: No Pertinent History Musculoskeletal History: No Pertinent History GI Medical History: No Pertinent History History: No Pertinent History Psycho-Social History: No Pertinent History Male Reproductive Disorders: No Pertinent History - Past Surgical History Past Surgical History: Yes Neuro Surgical History: No Pertinent History Cardiac: No Pertinent History Respiratory: No Pertinent History Gastrointestinal: No Pertinent History Genitourinary: No Pertinent History Musculoskeletal: Other Male Surgical History: No Pertinent History Other Surgical History: right index finger put back, groin surgery as a kid - Social History Smoking Status: Never smoker Exposure to second hand smoke: No Drug Use: none Patient Lives Alone: No - Social Determinants of Health Will the patient participate in the screening: Yes Do you worry about a steady place to live?: No In the past 12 months,have you had to go without utilities?: No Transportation Issues: No Has anyone in your support network made you feel unsafe?: No Have you or anyone in your house had to go without enough: No - Nursing Vital Signs Nursing Vital Signs: Initial Vital Signs Temperature 98.2 F 10/12/23 20:22 Pulse Rate 86 10/12/23 20:22 Respiratory Rate 18 10/12/23 20:22 Blood Pressure 151/118 10/12/23 20:22 O2 Sat by Pulse Oximetry 98 10/12/23 20:22 Pain Scale Pain Intensity 9 - Physical Exam General Appearance: no apparent distress, alert, anxiety Eyes, Ears, Nose, Throat Exam: normal ENT inspection, moist mucous membranes Neck Exam: normal inspection, non-tender, supple, full range of motion Cardiovascular/Respiratory Exam: chest non-tender, no respiratory distress Gastrointestinal/Abdominal Exam: non-tender Back Exam: normal inspection, normal range of motion, No CVA tenderness, No vertebral tenderness Hips Exam: bilateral: non-tender, normal inspection, normal range of motion, no evidence of injury Legs Exam: bilateral leg: non-tender, normal inspection, normal range of motion, no evidence of injury Knees Exam: bilateral knee: non-tender, normal inspection, normal range of motion, no evidence of injury Ankle Exam: bilateral ankle: non-tender, normal inspection, normal range of gaye on, no evidence of injury Foot Exam: right foot: soft tissue tenderness (Distal aspect), swelling (Dorsal aspect), other (Redness and first to second-degree burn dorsal aspect right foot), left foot: non-tender, normal inspection, normal range of motion, no evidence of injury Neuro/Tendon Exam: normal sensation, normal motor functions, normal tendon functions, responds to pain, no evidence tendon injury Mental Status Exam: alert, oriented x 3, cooperative Skin Exam: other (The above foot examination section) SpO2 Interpretation: normal O2 Delivery: Room Air - Course Nursing assessment & vital signs reviewed: Yes Ordered Tests: Medication Summary Discontinued Medications Generic Name Dose Route Start Last Admin Trade Name Madonna PRN Reason Stop Dose Admin Ceftriaxone Sodium 1,000 mg 10/12/23 20:52 10/12/23 21:13 Ceftriaxone Sodium 1000 Mg Inj Vial IM 10/12/23 20:53 1,000 mg STAT ONE Administration Ceftriaxone Sodium Confirm 10/12/23 21:07 Ceftriaxone Sodium 1000 Mg Inj Vial Administered 10/12/23 21:08 Dose 1,000 mg .ROUTE .STK-MED ONE Hydromorphone HCl 1 mg 10/12/23 20:53 10/12/23 21:12 Hydromorphone 1 Mg/1ml Inj IM 10/12/23 20:54 1 mg STAT ONE Administration Hydromorphone HCl Confirm 10/12/23 21:07 Hydromorphone 1 Mg/1ml Inj Administered 10/12/23 21:08 Dose 1 mg .ROUTE .STK-MED ONE Lidocaine HCl Confirm 10/12/23 21:07 Lidocaine Hcl 1% 20 Ml Mdv 20 Ml Ml Administered 10/12/23 21:08 Dose 1 ml .ROUTE .STK-MED ONE Ondansetron HCl 4 mg 10/12/23 20:53 10/12/23 21:13 Zofran 4 Mg/Udtablet Orally Disintegrating PO 10/12/23 20:54 4 mg STAT ONE Administration Ondansetron HCl Confirm 10/12/23 21:07 Zofran 4 Mg/Udtablet Orally Disintegrating Administered 10/12/23 21:08 Dose 4 mg .ROUTE .STK-MED ONE - Progress Progress: unchanged, pain not gone completely, re-examined Progress Note: 10/12/23 21:20 My medical decision making and the assignment of low to moderate complexity of this patient's medical issue today is based on review of the patient's past medical history, review of the patient's medication list, review of the patient's drug allergy list, history present illness and physical findings on e xamination. No laboratory radiographic studies are necessary in this patient. However, we did call poison control center. The recommendation is to keep this site clean. They are to rinse the site twice a day. After each rinsing may apply bacitracin ointment to the site. Counseled pt/family regarding: diagnosis, need for follow-up Medical Desision Making - Independent Historian Additional History obtained from: Spouse - Diagnostic Testing Diagnostic test were ordered, analyzed, and reviewed by me: No - Risk of complications The pt has a mod risk of morbidity or mortality based on: Need for prescription drug management - Departure Departure Disposition: Home Clinical Impression: Burn of foot, right, second degree Condition: Stable Critical Care Time: No Referrals: FINN PLASENCIA [Primary Care Provider] - Follow up/PCP as directed Additional Instructions: Keep your right leg elevated above the level of your heart when not ambulating. Walk in sandals for the next 3 to 4 days. Keep the site clean. Rinse the site out twice a day. After each rinsing, blot dry use a hairspring setter to dry the site. Apply thin layer of bacitracin ointment to the site. Cover with a nonstick loose dressing. Take your antibiotics and pain medicine as prescribed. Call your primary care provider on 10/14/2023 to make arrangements for a follow-up appointment and to be seen in the next 2 to 3 days for reassessment. Return to the emergency department if symptoms appear to be worse despite treatment. Prescriptions: Hydrocodone/APAP 5/325 [[place] 5/325 mg] 1 each PO Q6H PRN PRN #8 tablet MDD 4 PRN Reason: Pain Cephalexin Mh 500 mg [Keflex 500 mg] 500 mg PO TID #15 cap
[2023-10-12 20:29] VITALS: TEMP 98.2
[2023-10-12] MEDS ORDERED: XYLOCAINE 1% HCL 20 ML MDV ONE (21:07)
[2023-10-12] MEDS ORDERED: Rocephin 1000 MG INJ ONE (21:07)
[2023-10-12] MEDS ORDERED: ZOFRAN ODT 4 MG ONE (21:07)
[2023-10-12] MEDS ORDERED: Hydromorphone 1 mg/ml Injection ONE (21:07)
[2023-10-12] MEDS: Hydromorphone 1 mg/ml Injection IM ONE (21:12)
[2023-10-12] MEDS: ZOFRAN ODT 4 MG PO ONE (21:13)
[2023-10-12] MEDS: Rocephin 1000 MG INJ IM ONE (21:13)
[2023-10-12 21:24] VITALS: O2SAT 97
[2023-10-12] MEDS: NORCO 5/325 MG PO ONE (21:30)
[2023-10-12] MEDS ORDERED: BACIGUENT PACKET ONE (21:31)
[2023-10-12] MEDS: BACIGUENT PACKET TP ONE (21:32)
[2023-10-12 21:46] VITALS: BP 145/91; PULSE 84; RESP 18
== END 2023-10-12 21:48 | disposition home or self-care (01) ==
LOC: ED 20:14
DX: T54.3X1A Toxic effect of corrosive alkalis and alkali-like substances, accidental (unintentional), initial encounter (principal); T25.621A Corrosion of second degree of right foot, initial encounter; Z79.891 Long term (current) use of opiate analgesic
CPT/HCPCS: 96372; 99283; J0696; J1170; Q0162; A9270-GY